=== PATIENT | female | born 1945 | race Caucasian/White ===

== ENCOUNTER 2021-09-15 11:17 | Emergency (ER) | payer BC, MEDICARE ==
[2021-09-15] MEDS ORDERED: Acetaminophen 500 MG Tab PO ONE (11:42)
== END 2021-09-15 12:27 | disposition home or self-care (01) ==
LOC: VM.ED 11:17
DX: S00.03XA Contusion of scalp, initial encounter (principal); Z88.0 Allergy status to penicillin; Z91.041 Radiographic dye allergy status; Z88.5 Allergy status to narcotic agent; Z88.1 Allergy status to other antibiotic agents; Z79.899 Other long term (current) drug therapy; Z79.01 Long term (current) use of anticoagulants; W18.30XA Fall on same level, unspecified, initial encounter
CPT/HCPCS: 70450; 99283; 99283-25

== ENCOUNTER 2022-03-14 14:54 | Emergency (ER) | payer MEDICARE ==
[2022-03-14 16:05] LABS: CHLORIDE,CL 97 mmol/L (98-107); SODIUM,NA 131 mmol/L (136-145)
[2022-03-14 16:06] LABS: ANION GAP 12.9 mmol/L (5-15); ESTIMATED GFR 92 mL/min (>=60)
[2022-03-14 16:27] LABS: CORONAVIRUS COVID-19 NAA NEGATIVE (NEGATIVE)
[2022-03-14] MEDS: Furosemide 40 MG/4 ML VIAL IV ONE (17:23)
== END 2022-03-14 18:00 | disposition home or self-care (01) ==
LOC: VM.ED 14:54
DX: I11.0 Hypertensive heart disease with heart failure (principal); I50.9 Heart failure, unspecified; E03.9 Hypothyroidism, unspecified; K21.9 Gastro-esophageal reflux disease without esophagitis; Z88.2 Allergy status to sulfonamides; Z88.0 Allergy status to penicillin; Z88.5 Allergy status to narcotic agent; Z20.822 Contact with and (suspected) exposure to COVID-19
CPT/HCPCS: 0240U; 36415; 80053; 82550; 83615; 83690; 83880; 84484; 85025; 86140; 93005; 93010; 96374; 99284; 99284-25; J1940

== ENCOUNTER 2022-05-23 16:55 | Emergency (ER) | payer MEDICARE ==
[2022-05-23] MEDS: traMADol 50 MG Tab PO ONE (17:23)
[2022-05-23] MEDS: Acetaminophen 325 MG Tab PO ONE (17:24)
== END 2022-05-23 19:20 | disposition home or self-care (01) ==
LOC: VM.ED 16:55
DX: S70.02XA Contusion of left hip, initial encounter (principal); I10 Essential (primary) hypertension; Z88.2 Allergy status to sulfonamides; Z88.0 Allergy status to penicillin; Z88.5 Allergy status to narcotic agent; Z91.041 Radiographic dye allergy status; Z79.899 Other long term (current) drug therapy; Z87.891 Personal history of nicotine dependence; W18.39XA Other fall on same level, initial encounter
CPT/HCPCS: 70450; 99284; A9270-GY

== ENCOUNTER 2022-09-24 09:23 | Emergency (ER) | payer MEDICARE ==
[2022-09-24 10:06] LABS: BASOPHILS PERCENT AUTO 0.7 % (0.2-1.2); EOSINOPHILS ABSOLUTE AUTO 0.1 x10^3/uL (0.0-0.5); EOSINOPHILS PERCENT AUTO 2.2 % (0.0-4.0); HEMATOCRIT 40.8 % (33.0-47.0); HEMOGLOBIN 13.7 g/dL (12.0-16.0); IMMATURE GRAN ABSOLUTE AUTO 0.01 x10^3/uL (0.00-0.07); LYMPHOCYTES ABSOLUTE AUTO 0.9 x10^3/uL (1.0-4.8); LYMPHOCYTES PERCENT AUTO 15.5 % (25.0-50.0); MEAN CORPUSCULAR HEMOGLOBIN 29.8 pg (26.0-32.0); MEAN CORPUSCULAR HGB CONC 33.6 g/dL (32.0-36.0); MEAN CORPUSCULAR VOLUME 88.7 fL (78.0-93.0); MONOCYTES ABSOLUTE AUTO 0.4 x10^3/uL (0.0-0.8); MONOCYTES PERCENT AUTO 7.3 % (2.0-11.0); NEUTROPHILS ABSOLUTE AUTO 4.5 x10^3/uL (1.8-7.7); NEUTROPHILS PERCENT AUTO 74.1 % (50.0-80.0); PLATELET COUNT,PLT 205 x10^3/uL (130-400)
[2022-09-24 10:26] LABS: ALANINE AMINOTRANSFERASE,ALT 19 U/L (14-59); ALBUMIN 3.1 g/dL (3.4-5.0); ALKALINE PHOSPHATASE 71 U/L (46-116); ASPARTATE AMNIOTRANSFERASE,AST 23 U/L (15-37); BILIRUBIN TOTAL 0.5 mg/dL (0.2-1.0); BLOOD UREA NITROGEN,BUN 15 mg/dL (7-18); C-REACTIVE PROTEIN 0.2 mg/dL (<=0.9); CALCIUM 8.6 mg/dL (8.5-10.1); CARBON DIOXIDE,CO2 26 mmol/L (21-32); CHLORIDE,CL 99 mmol/L (98-107); CREATININE 0.8 mg/dL (0.55-1.02); GLUCOSE RANDOM 114 mg/dL (70-99); POTASSIUM,K 3.7 mmol/L (3.5-5.1); PROTEIN TOTAL,TP 7.5 g/dL (6.4-8.2); SODIUM,NA 134 mmol/L (136-145); URIC ACID 2.6 mg/dL (2.6-6.0)
[2022-09-24 10:27] LABS: ANION GAP 12.7 mmol/L (5-15); ESTIMATED GFR 75 mL/min (>=60)
[2022-09-24 10:40] LABS: SEDIMENTATION RATE AUTO 18 mm/hr (0-20)
== END 2022-09-24 11:26 | disposition home or self-care (01) ==
LOC: VM.ED 09:23
DX: M25.571 Pain in right ankle and joints of right foot (principal); I48.91 Unspecified atrial fibrillation; I10 Essential (primary) hypertension; E03.9 Hypothyroidism, unspecified; Z88.2 Allergy status to sulfonamides; Z88.0 Allergy status to penicillin; Z88.5 Allergy status to narcotic agent; Z91.041 Radiographic dye allergy status; Z79.01 Long term (current) use of anticoagulants; Z79.899 Other long term (current) drug therapy
CPT/HCPCS: 36415; 73630-RT; 80053; 84550; 85025; 85652; 86140; 99283

== ENCOUNTER 2022-10-06 11:40 | Inpatient (IN) | payer MEDICARE ==
[2022-10-06] MEDS ORDERED: Sodium Chloride 0.9% 10 ML Syringe FLUSH PRN (12:29)
[2022-10-06] MEDS ORDERED: Ondansetron 4 MG Tab.DIS PO PRN (12:29)
[2022-10-06] MEDS ORDERED: Acetaminophen 325 MG Tab PO PRN (12:29)
[2022-10-06 13:01] LABS: BASOPHILS PERCENT AUTO 0.7 % (0.2-1.2); EOSINOPHILS ABSOLUTE AUTO 0.1 x10^3/uL (0.0-0.5); EOSINOPHILS PERCENT AUTO 2.4 % (0.0-4.0); HEMATOCRIT 41.1 % (33.0-47.0); HEMOGLOBIN 14.4 g/dL (12.0-16.0); IMMATURE GRAN ABSOLUTE AUTO 0.04 x10^3/uL (0.00-0.07); LYMPHOCYTES ABSOLUTE AUTO 0.9 x10^3/uL (1.0-4.8); LYMPHOCYTES PERCENT AUTO 14.9 % (25.0-50.0); MEAN CORPUSCULAR HEMOGLOBIN 30.2 pg (26.0-32.0); MEAN CORPUSCULAR VOLUME 86.2 fL (78.0-93.0); MONOCYTES ABSOLUTE AUTO 0.5 x10^3/uL (0.0-0.8); NEUTROPHILS ABSOLUTE AUTO 4.2 x10^3/uL (1.8-7.7); NEUTROPHILS PERCENT AUTO 72.3 % (50.0-80.0); PLATELET COUNT,PLT 318 x10^3/uL (130-400); RED BLOOD CELL COUNT 4.77 x10^6/uL (4.00-5.50); WHITE BLOOD CELL COUNT,WBC 5.8 x10^3/uL (4.0-10.0)
[2022-10-06 13:27] LABS: A/G RATIO 0.63; BILIRUBIN TOTAL 0.9 mg/dL (0.2-1.0); CALCIUM 8.2 mg/dL (8.5-10.1); CREATININE 0.7 mg/dL (0.55-1.02); EST CRCL DRUG DOSING (CG) 47.58 mL/min; MAGNESIUM 2.1 mg/dL (1.8-2.4); POTASSIUM,K 3.4 mmol/L (3.5-5.1); PROTEIN TOTAL,TP 7.8 g/dL (6.4-8.2); TSH ULTRASENSITIVE 12.248 uIU/mL (0.358-3.74)
[2022-10-06 13:28] LABS: ANION GAP 12.4 mmol/L (5-15)
[2022-10-06] MEDS ORDERED: Potassium Chloride 10 MEQ Tab.ER PO ONE (13:58)
[2022-10-06] MEDS ORDERED: predniSONE 5 MG Tab PO PRN (13:58)
[2022-10-06] MEDS ORDERED: predniSONE 1 MG Tab PO PRN (13:58)
[2022-10-06] MEDS ORDERED: Furosemide 20 MG Tab PO PRN (13:58)
[2022-10-06] MEDS ORDERED: Hyoscyamine 0.125 MG/ML Bottle PO PRN (14:44)
[2022-10-06] MEDS ORDERED: Levalbuterol HCl 1.25 MG/0.5 ML Neb INH PRN (14:45)
[2022-10-06] MEDS ORDERED: Ketotifen 0.025% Ophth Soln 5 ML Bottle EYEBOTH PRN (15:00)
[2022-10-06 16:10] LABS: BILIRUBIN,URINE SMALL (NEGATIVE); COLOR,URINE DARK YELLOW (YELLOW); GLUCOSE,URINE 500 mg/dL (NEGATIVE); KETONES,URINE NEGATIVE (NEGATIVE); LEUKOCYTE ESTERASE,URINE NEGATIVE (NEGATIVE); NITRITE,URINE NEGATIVE (NEGATIVE); OCCULT BLOOD,URINE TRACE-LYSED (NEGATIVE); PH,URINE 5.5 (5.0-8.0); PROTEIN,URINE 30 mg/dL (NEGATIVE); UROBILINOGEN,URINE 0.2 EU/dL (0.2)
[2022-10-06 16:12] LABS: APPEARANCE,URINE SLIGHTLY CLOUDY (CLEAR)
[2022-10-06 16:15] LABS: BACTERIA,URINE RARE /HPF (NOT SEEN); MUCUS,URINE NOT SEEN /LPF (NOT SEEN); SQUAMOUS EPITHELIAL CELLS,UR RARE /HPF (NOT SEEN); WBC,URINE 0-5 /HPF (NOT SEEN)
[2022-10-06] MEDS ORDERED: Sotalol 80 MG Tab PO ONE (19:47)
[2022-10-06] MEDS: Gabapentin 100 MG Cap PO SCH (20:54)
[2022-10-06] MEDS: Donepezil 10 MG Tab PO SCH (21:07)
[2022-10-06] MEDS: Formoterol/Mometasone 200-5 MCG 13 GM Inhaler INH SCH (21:08)
[2022-10-06] MEDS: ALPRAZolam 0.25 MG Tab PO PRN (23:05)
[2022-10-06] MEDS: Sotalol 80 MG Tab PO SCH (23:36)
[2022-10-07] MEDS: Levothyroxine 112 MCG Tab PO SCH (06:33)
[2022-10-07 07:29] LABS: CALCIUM 8.3 mg/dL (8.5-10.1); CREATININE 0.7 mg/dL (0.55-1.02); EST CRCL DRUG DOSING (CG) 47.58 mL/min; POTASSIUM,K 3.7 mmol/L (3.5-5.1)
[2022-10-07 07:31] LABS: ANION GAP 11.7 mmol/L (5-15)
[2022-10-07] MEDS: Rivaroxaban 10 MG Tab PO SCH (11:02)
[2022-10-07] MEDS: Pantoprazole 40 MG Tab.CR PO SCH (11:03)
[2022-10-07] MEDS: Magnesium Oxide 400 MG Tab PO SCH (11:04)
[2022-10-07] MEDS: Gabapentin 100 MG Cap PO SCH ×2 (11:04→21:15)
[2022-10-07] MEDS: Spironolactone 25 MG Tab PO SCH (11:04)
[2022-10-07] MEDS: Sotalol 80 MG Tab PO SCH ×2 (11:05→21:13)
[2022-10-07] MEDS: Empagliflozin 10 MG Tab PO SCH (11:05)
[2022-10-07] MEDS: Citalopram 20 MG Tab PO SCH (11:06)
[2022-10-07] MEDS: Formoterol/Mometasone 200-5 MCG 13 GM Inhaler INH SCH ×2 (11:07→21:16)
[2022-10-07] MEDS: Montelukast 10 MG Tab PO SCH (11:14)
[2022-10-07] MEDS: Donepezil 10 MG Tab PO SCH (21:15)
[2022-10-08] MEDS: Levothyroxine 112 MCG Tab PO SCH (06:14)
[2022-10-08] MEDS: Sotalol 80 MG Tab PO SCH ×2 (09:56→21:30)
[2022-10-08] MEDS: Magnesium Oxide 400 MG Tab PO SCH (09:57)
[2022-10-08] MEDS: Pantoprazole 40 MG Tab.CR PO SCH (09:57)
[2022-10-08] MEDS: Montelukast 10 MG Tab PO SCH (09:58)
[2022-10-08] MEDS: Rivaroxaban 10 MG Tab PO SCH (09:58)
[2022-10-08] MEDS: Gabapentin 100 MG Cap PO SCH ×2 (09:59→21:31)
[2022-10-08] MEDS: Citalopram 20 MG Tab PO SCH (09:59)
[2022-10-08] MEDS: Spironolactone 25 MG Tab PO SCH (09:59)
[2022-10-08] MEDS: Formoterol/Mometasone 200-5 MCG 13 GM Inhaler INH SCH ×2 (09:59→21:35)
[2022-10-08] MEDS: Empagliflozin 10 MG Tab PO SCH (10:00)
[2022-10-08] MEDS: Donepezil 10 MG Tab PO SCH (21:33)
[2022-10-09] MEDS: ALPRAZolam 0.25 MG Tab PO PRN (00:21)
[2022-10-09] MEDS: Levothyroxine 112 MCG Tab PO SCH (06:58)
[2022-10-09] MEDS: Empagliflozin 10 MG Tab PO SCH (10:06)
[2022-10-09] MEDS: Montelukast 10 MG Tab PO SCH (10:06)
[2022-10-09] MEDS: Citalopram 20 MG Tab PO SCH (10:06)
[2022-10-09] MEDS: Magnesium Oxide 400 MG Tab PO SCH (10:06)
[2022-10-09] MEDS: Gabapentin 100 MG Cap PO SCH (10:07)
[2022-10-09] MEDS: Sotalol 80 MG Tab PO SCH (10:08)
[2022-10-09] MEDS: Formoterol/Mometasone 200-5 MCG 13 GM Inhaler INH SCH (10:09)
[2022-10-09] MEDS: Pantoprazole 40 MG Tab.CR PO SCH (10:09)
[2022-10-09] MEDS: Rivaroxaban 10 MG Tab PO SCH (10:09)
[2022-10-09] MEDS: Spironolactone 25 MG Tab PO SCH (10:09)
[2022-10-14] MEDS ORDERED: Ketotifen 0.025% Ophth Soln 5 ML Bottle EYEBOTH PRN (16:33)
[2022-10-14] MEDS ORDERED: Acetaminophen 325 MG Tab PO PRN (16:33)
== END 2022-10-09 14:22 | disposition swing bed (61) | DRG 948 ==
LOC: VM.MS 11:47
PROVIDERS: ADMIT Family Medicine; ATTEND Family Medicine
DX: R41.0 Disorientation, unspecified (principal); I48.20 Chronic atrial fibrillation, unspecified; E87.1 Hypo-osmolality and hyponatremia; E03.9 Hypothyroidism, unspecified; I50.9 Heart failure, unspecified; K58.9 Irritable bowel syndrome, unspecified; M35.00 Sjogren syndrome, unspecified; K21.9 Gastro-esophageal reflux disease without esophagitis; J45.909 Unspecified asthma, uncomplicated; H91.90 Unspecified hearing loss, unspecified ear; I11.0 Hypertensive heart disease with heart failure; M19.90 Unspecified osteoarthritis, unspecified site; M06.9 Rheumatoid arthritis, unspecified; M81.0 Age-related osteoporosis without current pathological fracture; D64.9 Anemia, unspecified; Z96.649 Presence of unspecified artificial hip joint; Z96.659 Presence of unspecified artificial knee joint; R53.1 Weakness; R53.83 Other fatigue; I95.9 Hypotension, unspecified; W18.30XA Fall on same level, unspecified, initial encounter; S00.03XA Contusion of scalp, initial encounter; Y92.89 Other specified places as the place of occurrence of the external cause; Z98.890 Other specified postprocedural states; Z87.891 Personal history of nicotine dependence; Z79.890 Hormone replacement therapy
CPT/HCPCS: 36415; 70450; 80048; 80053; 81001; 83735; 84443; 85025; 87040; 87086; 95851-GO; 97110-GP; 97116-GP; 97161-GP; 97165-GO; 97535-GO; A9270-GY; J3490; U0002

== ENCOUNTER 2022-10-09 14:22 | Inpatient (IN) | payer MEDICARE ==
[~2022-10-09 14:22] MED LIST: ACETAMINOPHEN PO PRN; Furosemide 20 MG Tab PO PRN; GUAR GUM PO SCH; Hyoscyamine 0.125 MG/ML Bottle PO PRN; Loperamide 2 MG Cap PO PRN; Non-Formulary Medication 1 Each (Levalbuterol Tartrate [Xopenex Hfa] 15 GM Inhaler) INH PRN; Non-Formulary Medication 1 Each (Olopatadine [Patanol 0.1% Ophth Soln] 5 ML Bottle) OP SCH; Ondansetron 4 MG Tab.DIS PO PRN; TRAMADOL PO PRN; predniSONE 1 MG Tab PO PRN; predniSONE 5 MG Tab PO PRN
[2022-10-09] MEDS ORDERED: Acetaminophen 325 MG Tab PO PRN (15:29)
[2022-10-09] MEDS ORDERED: Ketotifen 0.025% Ophth Soln 5 ML Bottle EYEBOTH PRN (15:29)
[2022-10-09] MEDS: Sotalol 80 MG Tab PO SCH (21:26)
[2022-10-09] MEDS: Formoterol/Mometasone 200-5 MCG 13 GM Inhaler INH SCH (21:27)
[2022-10-09] MEDS: Gabapentin 100 MG Cap PO SCH (21:30)
[2022-10-09] MEDS: Donepezil 10 MG Tab PO SCH (21:32)
[2022-10-09] MEDS: ALPRAZolam 0.25 MG Tab PO PRN (21:33)
[2022-10-10] MEDS: Levothyroxine 112 MCG Tab PO SCH (06:42)
[2022-10-10] MEDS: Pantoprazole 40 MG Tab.CR PO SCH (06:42)
[2022-10-10] MEDS ORDERED: Levothyroxine 88 MCG Tab PO SCH (07:00)
[2022-10-10] MEDS ORDERED: Pantoprazole 40 MG Tab.CR PO SCH ×2 (09:00)
[2022-10-10] MEDS ORDERED: Citalopram 20 MG Tab PO SCH (09:00)
[2022-10-10] MEDS ORDERED: Non-Formulary Medication 1 Each (Fluticasone/Vilanterol 1 EACH Each) IH SCH (09:00)
[2022-10-10] MEDS: Magnesium Oxide 400 MG Tab PO SCH (10:03)
[2022-10-10] MEDS: Rivaroxaban 10 MG Tab PO SCH (10:03)
[2022-10-10] MEDS: Loratadine 10 MG Tab PO SCH (10:04)
[2022-10-10] MEDS: Empagliflozin 10 MG Tab PO SCH (10:04)
[2022-10-10] MEDS: Folic Acid 1 MG Tab PO SCH (10:04)
[2022-10-10] MEDS: Gabapentin 100 MG Cap PO SCH ×2 (10:04→20:54)
[2022-10-10] MEDS: Spironolactone 25 MG Tab PO SCH (10:05)
[2022-10-10] MEDS: Sotalol 80 MG Tab PO SCH ×2 (10:05→20:54)
[2022-10-10] MEDS: Citalopram 20 MG Tab PO SCH (10:05)
[2022-10-10] MEDS: Montelukast 10 MG Tab PO SCH (10:05)
[2022-10-10] MEDS: Formoterol/Mometasone 200-5 MCG 13 GM Inhaler INH SCH ×2 (10:06→20:56)
[2022-10-10] MEDS: Ascorbic Acid 500 MG Tab PO SCH (10:11)
[2022-10-10] MEDS: Donepezil 10 MG Tab PO SCH (20:55)
[2022-10-10] MEDS: ALPRAZolam 0.25 MG Tab PO PRN (23:17)
[2022-10-11] MEDS: Pantoprazole 40 MG Tab.CR PO SCH (06:16)
[2022-10-11] MEDS: Levothyroxine 112 MCG Tab PO SCH (06:16)
[2022-10-11] MEDS: Loratadine 10 MG Tab PO SCH (08:38)
[2022-10-11] MEDS: Rivaroxaban 10 MG Tab PO SCH (08:38)
[2022-10-11] MEDS: Ascorbic Acid 500 MG Tab PO SCH (08:38)
[2022-10-11] MEDS: Empagliflozin 10 MG Tab PO SCH (08:38)
[2022-10-11] MEDS: Spironolactone 25 MG Tab PO SCH (08:38)
[2022-10-11] MEDS: Gabapentin 100 MG Cap PO SCH ×2 (08:39→21:34)
[2022-10-11] MEDS: Magnesium Oxide 400 MG Tab PO SCH (08:39)
[2022-10-11] MEDS: Folic Acid 1 MG Tab PO SCH (08:39)
[2022-10-11] MEDS: Montelukast 10 MG Tab PO SCH (08:39)
[2022-10-11] MEDS: Sotalol 80 MG Tab PO SCH ×2 (08:39→21:36)
[2022-10-11] MEDS: Citalopram 20 MG Tab PO SCH (08:40)
[2022-10-11] MEDS: Formoterol/Mometasone 200-5 MCG 13 GM Inhaler INH SCH ×2 (08:45→21:35)
[2022-10-11] MEDS: Fish Oil/Omega-3 Fatty Acids 1 Gm Cap PO SCH (09:58)
[2022-10-11] MEDS ORDERED: [UNRECOGNIZED DRUG - OTHER] INH PRN (15:13)
[2022-10-11] MEDS ORDERED: LEVALBUTEROL INH PRN (15:13)
[2022-10-11 15:20] LABS: APPEARANCE,URINE CLEAR (CLEAR); BILIRUBIN,URINE NEGATIVE (NEGATIVE); COLOR,URINE YELLOW (YELLOW); GLUCOSE,URINE 500 mg/dL (NEGATIVE); KETONES,URINE NEGATIVE (NEGATIVE); LEUKOCYTE ESTERASE,URINE SMALL (NEGATIVE); NITRITE,URINE NEGATIVE (NEGATIVE); OCCULT BLOOD,URINE TRACE-LYSED (NEGATIVE); PH,URINE 6.5 (5.0-8.0); PROTEIN,URINE NEGATIVE (NEGATIVE); UROBILINOGEN,URINE 0.2 EU/dL (0.2)
[2022-10-11 15:21] LABS: BACTERIA,URINE RARE /HPF (NOT SEEN); RBC,URINE 0-5 /HPF (NOT SEEN); SQUAMOUS EPITHELIAL CELLS,UR RARE /HPF (NOT SEEN)
[2022-10-11] MEDS: Donepezil 10 MG Tab PO SCH (21:35)
[2022-10-11] MEDS: ALPRAZolam 0.25 MG Tab PO PRN (21:48)
[2022-10-12] MEDS: Levothyroxine 112 MCG Tab PO SCH (06:06)
[2022-10-12] MEDS: Pantoprazole 40 MG Tab.CR PO SCH (06:06)
[2022-10-12] MEDS: Rivaroxaban 10 MG Tab PO SCH (08:17)
[2022-10-12] MEDS: Folic Acid 1 MG Tab PO SCH (08:17)
[2022-10-12] MEDS: Empagliflozin 10 MG Tab PO SCH (08:17)
[2022-10-12] MEDS: Citalopram 20 MG Tab PO SCH (08:17)
[2022-10-12] MEDS: Magnesium Oxide 400 MG Tab PO SCH (08:17)
[2022-10-12] MEDS: Spironolactone 25 MG Tab PO SCH (08:18)
[2022-10-12] MEDS: Ascorbic Acid 500 MG Tab PO SCH (08:18)
[2022-10-12] MEDS: Sotalol 80 MG Tab PO SCH ×2 (08:18→22:03)
[2022-10-12] MEDS: Montelukast 10 MG Tab PO SCH (08:18)
[2022-10-12] MEDS: Loratadine 10 MG Tab PO SCH (08:18)
[2022-10-12] MEDS: Gabapentin 100 MG Cap PO SCH ×2 (08:19→22:02)
[2022-10-12] MEDS: Formoterol/Mometasone 200-5 MCG 13 GM Inhaler INH SCH ×2 (08:20→22:02)
[2022-10-12] MEDS ORDERED: Menthol Lozenge PO PRN (12:20)
[2022-10-12] MEDS: Donepezil 10 MG Tab PO SCH (22:01)
[2022-10-12] MEDS: ALPRAZolam 0.25 MG Tab PO PRN (23:23)
[2022-10-13] MEDS: Levothyroxine 112 MCG Tab PO SCH (06:55)
[2022-10-13] MEDS: Pantoprazole 40 MG Tab.CR PO SCH (06:55)
[2022-10-13] MEDS: Ascorbic Acid 500 MG Tab PO SCH (08:09)
[2022-10-13] MEDS: Magnesium Oxide 400 MG Tab PO SCH (08:09)
[2022-10-13] MEDS: Gabapentin 100 MG Cap PO SCH ×2 (08:09→21:29)
[2022-10-13] MEDS: Citalopram 20 MG Tab PO SCH (08:10)
[2022-10-13] MEDS: Montelukast 10 MG Tab PO SCH (08:10)
[2022-10-13] MEDS: Rivaroxaban 10 MG Tab PO SCH (08:10)
[2022-10-13] MEDS: Empagliflozin 10 MG Tab PO SCH (08:10)
[2022-10-13] MEDS: Folic Acid 1 MG Tab PO SCH (08:10)
[2022-10-13] MEDS: Loratadine 10 MG Tab PO SCH (08:10)
[2022-10-13] MEDS: Spironolactone 25 MG Tab PO SCH (08:10)
[2022-10-13] MEDS: Fish Oil/Omega-3 Fatty Acids 1 Gm Cap PO SCH (08:16)
[2022-10-13] MEDS: Sotalol 80 MG Tab PO SCH ×2 (08:17→21:31)
[2022-10-13] MEDS: Formoterol/Mometasone 200-5 MCG 13 GM Inhaler INH SCH ×2 (08:18→21:26)
[2022-10-13] MEDS: [UNRECOGNIZED DRUG - OTHER] PO PRN ×2 (10:33→21:25)
[2022-10-13] MEDS: Donepezil 10 MG Tab PO SCH (21:34)
[2022-10-13] MEDS: ALPRAZolam 0.25 MG Tab PO PRN (22:16)
[2022-10-14] MEDS: Levothyroxine 112 MCG Tab PO SCH (06:46)
[2022-10-14] MEDS: Pantoprazole 40 MG Tab.CR PO SCH (06:46)
[2022-10-14] MEDS: Spironolactone 25 MG Tab PO SCH (08:08)
[2022-10-14] MEDS: Loratadine 10 MG Tab PO SCH (08:08)
[2022-10-14] MEDS: Folic Acid 1 MG Tab PO SCH (08:08)
[2022-10-14] MEDS: Montelukast 10 MG Tab PO SCH (08:08)
[2022-10-14] MEDS: Rivaroxaban 10 MG Tab PO SCH (08:09)
[2022-10-14] MEDS: Magnesium Oxide 400 MG Tab PO SCH (08:09)
[2022-10-14] MEDS: Empagliflozin 10 MG Tab PO SCH (08:09)
[2022-10-14] MEDS: Gabapentin 100 MG Cap PO SCH ×2 (08:09→21:51)
[2022-10-14] MEDS: Sotalol 80 MG Tab PO SCH ×2 (08:09→21:48)
[2022-10-14] MEDS: Ascorbic Acid 500 MG Tab PO SCH (08:09)
[2022-10-14] MEDS: Citalopram 20 MG Tab PO SCH (08:10)
[2022-10-14] MEDS: Formoterol/Mometasone 200-5 MCG 13 GM Inhaler INH SCH ×2 (08:11→21:52)
[2022-10-14 12:04] LABS: CALCIUM 9.1 mg/dL (8.5-10.1); CREATININE 0.8 mg/dL (0.55-1.02); EST CRCL DRUG DOSING (CG) 41.63 mL/min; POTASSIUM,K 4.6 mmol/L (3.5-5.1)
[2022-10-14 12:11] LABS: ANION GAP 13.6 mmol/L (5-15)
[2022-10-14 15:26] LABS: APPEARANCE,URINE CLEAR (CLEAR); BILIRUBIN,URINE NEGATIVE (NEGATIVE); COLOR,URINE YELLOW (YELLOW); GLUCOSE,URINE 500 mg/dL (NEGATIVE); KETONES,URINE NEGATIVE (NEGATIVE); LEUKOCYTE ESTERASE,URINE NEGATIVE (NEGATIVE); NITRITE,URINE NEGATIVE (NEGATIVE); OCCULT BLOOD,URINE TRACE-INTACT (NEGATIVE); PH,URINE 6.5 (5.0-8.0); PROTEIN,URINE NEGATIVE (NEGATIVE); UROBILINOGEN,URINE 0.2 EU/dL (0.2)
[2022-10-14 15:27] LABS: BACTERIA,URINE RARE /HPF (NOT SEEN); MUCUS,URINE RARE /LPF (NOT SEEN); RBC,URINE 0-5 /HPF (NOT SEEN); SQUAMOUS EPITHELIAL CELLS,UR RARE /HPF (NOT SEEN); WBC,URINE 0-5 /HPF (NOT SEEN)
[2022-10-14] MEDS ORDERED: Ketotifen 0.025% Ophth Soln 5 ML Bottle EYEBOTH PRN (17:20)
[2022-10-14] MEDS ORDERED: Acetaminophen 325 MG Tab PO PRN (17:21)
[2022-10-14] MEDS ORDERED: Formoterol/Mometasone 200-5 MCG 13 GM Inhaler INH SCH (21:00)
[2022-10-14] MEDS: Donepezil 10 MG Tab PO SCH (21:51)
[2022-10-14] MEDS: [UNRECOGNIZED DRUG - OTHER] PO PRN (21:52)
[2022-10-14] MEDS: ALPRAZolam 0.25 MG Tab PO PRN (21:57)
[2022-10-15] MEDS: Levothyroxine 112 MCG Tab PO SCH (06:55)
[2022-10-15] MEDS: Pantoprazole 40 MG Tab.CR PO SCH (06:55)
[2022-10-15] MEDS ORDERED: Levothyroxine 112 MCG Tab PO SCH (07:00)
[2022-10-15] MEDS ORDERED: Ergocalciferol (Vitamin D2) 1.25 MG Cap PO SCH (08:00)
[2022-10-15] MEDS: Fish Oil/Omega-3 Fatty Acids 1 Gm Cap PO SCH (08:19)
[2022-10-15] MEDS ORDERED: Pantoprazole 40 MG Tab.CR PO SCH (09:00)
[2022-10-15] MEDS ORDERED: Citalopram 20 MG Tab PO SCH (09:00)
[2022-10-15] MEDS: Magnesium Oxide 400 MG Tab PO SCH (09:03)
[2022-10-15] MEDS: Gabapentin 100 MG Cap PO SCH (09:05)
[2022-10-15] MEDS: Folic Acid 1 MG Tab PO SCH (09:06)
[2022-10-15] MEDS: Spironolactone 25 MG Tab PO SCH (09:06)
[2022-10-15] MEDS: Loratadine 10 MG Tab PO SCH (09:06)
[2022-10-15] MEDS: Montelukast 10 MG Tab PO SCH (09:06)
[2022-10-15] MEDS: Citalopram 20 MG Tab PO SCH (09:07)
[2022-10-15] MEDS: Ascorbic Acid 500 MG Tab PO SCH (09:07)
[2022-10-15] MEDS: Rivaroxaban 10 MG Tab PO SCH (09:08)
[2022-10-15] MEDS: Sotalol 80 MG Tab PO SCH (09:09)
[2022-10-15] MEDS: Formoterol/Mometasone 200-5 MCG 13 GM Inhaler INH SCH (09:13)
== END 2022-10-15 13:25 | disposition home health service (06) | DRG 948 ==
LOC: VM.MS 14:22
PROVIDERS: ADMIT Nurse Practitioner Family; ATTEND Family Medicine
DX: R53.1 Weakness (principal); E03.9 Hypothyroidism, unspecified; R53.83 Other fatigue; S00.03XA Contusion of scalp, initial encounter; I48.91 Unspecified atrial fibrillation; I50.9 Heart failure, unspecified; Z96.659 Presence of unspecified artificial knee joint; Z96.649 Presence of unspecified artificial hip joint; J45.909 Unspecified asthma, uncomplicated; K21.9 Gastro-esophageal reflux disease without esophagitis; Z79.890 Hormone replacement therapy; Z79.899 Other long term (current) drug therapy; Z98.890 Other specified postprocedural states; Z87.891 Personal history of nicotine dependence
CPT/HCPCS: 36415; 80048; 81001; 82947; 87086; 97110-GP; 97116-GP; 97530-GO; 97530-GP; 97535-GO; A9270-GY

== ENCOUNTER 2022-10-15 20:56 | Inpatient (IN) | payer MEDICARE ==
[2022-10-15] MEDS ORDERED: Sodium Chloride 0.9% 10 ML Syringe FLUSH PRN (21:04)
[2022-10-15] MEDS: Sodium Chloride 0.9% 1,000 ML IV SCH (21:30)
[2022-10-15 21:37] LABS: BASOPHILS PERCENT AUTO 0.7 % (0.2-1.2); EOSINOPHILS ABSOLUTE AUTO 0.1 x10^3/uL (0.0-0.5); EOSINOPHILS PERCENT AUTO 2.5 % (0.0-4.0); HEMATOCRIT 38.3 % (33.0-47.0); HEMOGLOBIN 13.1 g/dL (12.0-16.0); IMMATURE GRAN ABSOLUTE AUTO 0.01 x10^3/uL (0.00-0.07); LYMPHOCYTES ABSOLUTE AUTO 1.1 x10^3/uL (1.0-4.8); LYMPHOCYTES PERCENT AUTO 24.5 % (25.0-50.0); MEAN CORPUSCULAR HEMOGLOBIN 29.7 pg (26.0-32.0); MEAN CORPUSCULAR HGB CONC 34.2 g/dL (32.0-36.0); MEAN CORPUSCULAR VOLUME 86.8 fL (78.0-93.0); MONOCYTES ABSOLUTE AUTO 0.4 x10^3/uL (0.0-0.8); MONOCYTES PERCENT AUTO 8.6 % (2.0-11.0); NEUTROPHILS ABSOLUTE AUTO 2.8 x10^3/uL (1.8-7.7); NEUTROPHILS PERCENT AUTO 63.5 % (50.0-80.0); PLATELET COUNT,PLT 312 x10^3/uL (130-400); RED BLOOD CELL COUNT 4.41 x10^6/uL (4.00-5.50); WHITE BLOOD CELL COUNT,WBC 4.4 x10^3/uL (4.0-10.0)
[2022-10-15 21:51] LABS: INR 1.9 (2.0-3.5); PROTHROMBIN TIME 19.5 SEC (9.5-12.2); PTT,PARTIAL THROMBOPLSTIN TIME 36.8 SEC (23.6-33.6)
[2022-10-15 21:58] LABS: LACTIC ACID 1.3 mmol/L (0.4-2.0)
[2022-10-15 22:07] LABS: A/G RATIO 0.57; ALANINE AMINOTRANSFERASE,ALT 25 U/L (14-59); ALBUMIN 2.8 g/dL (3.4-5.0); ALKALINE PHOSPHATASE 64 U/L (46-116); ASPARTATE AMNIOTRANSFERASE,AST 28 U/L (15-37); BILIRUBIN TOTAL 0.4 mg/dL (0.2-1.0); BLOOD UREA NITROGEN,BUN 15 mg/dL (7-18); C-REACTIVE PROTEIN 3.6 mg/dL (<=0.9); CALCIUM 8.9 mg/dL (8.5-10.1); CARBON DIOXIDE,CO2 25 mmol/L (21-32); CHLORIDE,CL 97 mmol/L (98-107); CREATININE 0.7 mg/dL (0.55-1.02); GLUCOSE RANDOM 114 mg/dL (70-99); MAGNESIUM 1.8 mg/dL (1.8-2.4); PHOSPHORUS 3.9 mg/dL (2.6-4.7); POTASSIUM,K 4.2 mmol/L (3.5-5.1); PRO B-TYPE NATRIUR PEPT,BNPPRO 3682 pg/mL (<=450); PROTEIN TOTAL,TP 7.7 g/dL (6.4-8.2); SODIUM,NA 131 mmol/L (136-145); TSH ULTRASENSITIVE 11.746 uIU/mL (0.358-3.74)
[2022-10-15 22:08] LABS: ANION GAP 13.2 mmol/L (5-15); ESTIMATED GFR 88 mL/min (>=60)
[2022-10-15 22:37] LABS: APPEARANCE,URINE CLEAR (CLEAR); BILIRUBIN,URINE NEGATIVE (NEGATIVE); COLOR,URINE YELLOW (YELLOW); GLUCOSE,URINE 500 mg/dL (NEGATIVE); KETONES,URINE NEGATIVE (NEGATIVE); LEUKOCYTE ESTERASE,URINE NEGATIVE (NEGATIVE); NITRITE,URINE NEGATIVE (NEGATIVE); OCCULT BLOOD,URINE TRACE-INTACT (NEGATIVE); PROTEIN,URINE NEGATIVE (NEGATIVE); UROBILINOGEN,URINE 0.2 EU/dL (0.2)
[2022-10-15 22:40] LABS: BACTERIA,URINE RARE /HPF (NOT SEEN); MUCUS,URINE NOT SEEN /LPF (NOT SEEN); RBC,URINE 0-5 /HPF (NOT SEEN); SQUAMOUS EPITHELIAL CELLS,UR OCCASIONAL /HPF (NOT SEEN); WBC,URINE NOT SEEN /HPF (NOT SEEN)
[2022-10-16] MEDS ORDERED: Ondansetron 4 MG Tab.DIS PO PRN (00:37)
[2022-10-16] MEDS ORDERED: Albuterol HFA 18 Gm Inhaler INH PRN (00:37)
[2022-10-16] MEDS ORDERED: Hyoscyamine 0.125 MG/ML Bottle PO PRN (00:37)
[2022-10-16] MEDS ORDERED: Acetaminophen 325 MG Tab PO PRN ×2 (00:37→01:15)
[2022-10-16] MEDS ORDERED: predniSONE 1 MG Tab PO PRN (00:37)
[2022-10-16] MEDS ORDERED: Non-Formulary Medication 1 Each INH PRN (00:37)
[2022-10-16] MEDS ORDERED: Ketotifen 0.025% Ophth Soln 5 ML Bottle EYEBOTH PRN (00:37)
[2022-10-16] MEDS ORDERED: ALPRAZolam 0.25 MG Tab PO PRN (00:37)
[2022-10-16] MEDS ORDERED: Furosemide 20 MG Tab PO PRN (00:37)
[2022-10-16] MEDS ORDERED: predniSONE 5 MG Tab PO PRN (00:37)
[2022-10-16] MEDS ORDERED: traMADol 50 MG Tab PO PRN (00:37)
[2022-10-16] MEDS ORDERED: Non-Formulary Medication 1 Each (Olopatadine [Patanol 0.1% Ophth Soln] 5 ML Bottle) OP SCH (00:45)
[2022-10-16] MEDS: Sodium Chloride 0.9% 1,000 ML IV SCH (03:53)
[2022-10-16] MEDS ORDERED: Levothyroxine 112 MCG Tab PO SCH (07:00)
[2022-10-16 08:02] LABS: HEMATOCRIT 36.9 % (33.0-47.0); HEMOGLOBIN 12.6 g/dL (12.0-16.0); MEAN CORPUSCULAR HEMOGLOBIN 29.6 pg (26.0-32.0); MEAN CORPUSCULAR HGB CONC 34.1 g/dL (32.0-36.0); MEAN CORPUSCULAR VOLUME 86.8 fL (78.0-93.0); RED BLOOD CELL COUNT 4.25 x10^6/uL (4.00-5.50); WHITE BLOOD CELL COUNT,WBC 5.2 x10^3/uL (4.0-10.0)
[2022-10-16 08:19] LABS: CALCIUM 8.3 mg/dL (8.5-10.1); CREATININE 0.6 mg/dL (0.55-1.02); EST CRCL DRUG DOSING (CG) 55.51 mL/min; POTASSIUM,K 3.9 mmol/L (3.5-5.1)
[2022-10-16 08:20] LABS: ANION GAP 12.9 mmol/L (5-15)
[2022-10-16] MEDS ORDERED: Non-Formulary Medication 1 Each (Fluticasone/Vilanterol 1 EACH Each) IH SCH (09:00)
[2022-10-16] MEDS ORDERED: Pantoprazole 40 MG Tab.CR PO SCH ×2 (09:00)
[2022-10-16] MEDS ORDERED: Montelukast 10 MG Tab PO SCH (09:00)
[2022-10-16] MEDS ORDERED: Gabapentin 100 MG Cap PO SCH (09:00)
[2022-10-16] MEDS ORDERED: Magnesium Oxide 400 MG Tab PO SCH (09:00)
[2022-10-16] MEDS ORDERED: Sotalol 80 MG Tab PO SCH (09:00)
[2022-10-16] MEDS ORDERED: Loratadine 10 MG Tab PO SCH (09:00)
[2022-10-16] MEDS ORDERED: Folic Acid 1 MG Tab PO SCH (09:00)
[2022-10-16] MEDS ORDERED: Spironolactone 25 MG Tab PO SCH (09:00)
[2022-10-16] MEDS ORDERED: Formoterol/Mometasone 200-5 MCG 13 GM Inhaler INH SCH (09:00)
[2022-10-16] MEDS ORDERED: Rivaroxaban 10 MG Tab PO SCH (09:00)
[2022-10-16] MEDS ORDERED: Ascorbic Acid 500 MG Tab PO SCH (09:00)
[2022-10-16] MEDS ORDERED: Citalopram 20 MG Tab PO SCH (09:00)
[2022-10-16] MEDS ORDERED: Donepezil 10 MG Tab PO SCH (21:00)
[2022-10-18] MEDS ORDERED: Fish Oil/Omega-3 Fatty Acids 1 Gm Cap PO SCH (08:00)
[2022-10-22] MEDS ORDERED: Ergocalciferol (Vitamin D2) 1.25 MG Cap PO SCH (08:00)
== END 2022-10-16 15:00 | disposition home health service (06) | DRG 187 ==
LOC: VM.ED 20:56 → VM.MS 22:50
PROVIDERS: ADMIT Nurse Practitioner Family; ATTEND Family Medicine
DX: R53.1 Weakness (principal); I48.91 Unspecified atrial fibrillation; J90 Pleural effusion, not elsewhere classified; E87.1 Hypo-osmolality and hyponatremia; I48.20 Chronic atrial fibrillation, unspecified; I50.32 Chronic diastolic (congestive) heart failure; R35.0 Frequency of micturition; I11.0 Hypertensive heart disease with heart failure; K58.9 Irritable bowel syndrome, unspecified; H91.90 Unspecified hearing loss, unspecified ear; E03.9 Hypothyroidism, unspecified; M06.9 Rheumatoid arthritis, unspecified; M19.90 Unspecified osteoarthritis, unspecified site; M81.0 Age-related osteoporosis without current pathological fracture; D64.9 Anemia, unspecified; Z96.649 Presence of unspecified artificial hip joint; Z96.659 Presence of unspecified artificial knee joint; M35.00 Sjogren syndrome, unspecified; Z88.2 Allergy status to sulfonamides; J45.20 Mild intermittent asthma, uncomplicated; Z88.0 Allergy status to penicillin; Z88.5 Allergy status to narcotic agent; Z91.041 Radiographic dye allergy status; K21.9 Gastro-esophageal reflux disease without esophagitis; Z79.899 Other long term (current) drug therapy
CPT/HCPCS: 36415; 70450; 71045; 80048; 80053; 81001; 82550; 82947; 83605; 83735; 83880; 84100; 84443; 85025; 85027; 85610; 85730; 86140; 99284; 99285; A9270-GY; J7030

== ENCOUNTER 2022-11-13 22:03 | Emergency (ER) | payer MEDICARE ==
[2022-11-13] MEDS: Ondansetron 4 MG Tab.DIS PO ONE (23:43)
[2022-11-14] MEDS: Take Home: Ondansetron 4 MG Tab.DIS, 5 Tab Pack PO ONE (00:08)
== END 2022-11-14 00:18 | disposition home or self-care (01) ==
LOC: VM.ED 22:03
DX: R51.9 Headache, unspecified (principal); R11.0 Nausea; K21.9 Gastro-esophageal reflux disease without esophagitis; E03.9 Hypothyroidism, unspecified; I48.91 Unspecified atrial fibrillation; J45.909 Unspecified asthma, uncomplicated; I10 Essential (primary) hypertension; Z87.891 Personal history of nicotine dependence; Z79.899 Other long term (current) drug therapy; Z88.2 Allergy status to sulfonamides; Z88.0 Allergy status to penicillin; Z88.5 Allergy status to narcotic agent; Z88.8 Allergy status to other drugs, medicaments and biological substances
CPT/HCPCS: 70450; 99284; A9270-GY; Q0162

== ENCOUNTER 2023-03-24 07:22 | Inpatient (IN) | payer BC, MEDICARE ==
[2023-03-24] MEDS ORDERED: Sodium Chloride 0.9% 1,000 ML IV ONE (07:38)
[2023-03-24 08:17] LABS: BASOPHILS PERCENT AUTO 0.7 % (0.2-1.2); EOSINOPHILS ABSOLUTE AUTO 0.3 x10^3/uL (0.0-0.5); EOSINOPHILS PERCENT AUTO 6.2 % (0.0-4.0); HEMATOCRIT 38.6 % (33.0-47.0); HEMOGLOBIN 13.4 g/dL (12.0-16.0); IMMATURE GRAN ABSOLUTE AUTO 0.02 x10^3/uL (0.00-0.07); LYMPHOCYTES ABSOLUTE AUTO 1.1 x10^3/uL (1.0-4.8); LYMPHOCYTES PERCENT AUTO 23.2 % (25.0-50.0); MEAN CORPUSCULAR HEMOGLOBIN 30.5 pg (26.0-32.0); MEAN CORPUSCULAR HGB CONC 34.7 g/dL (32.0-36.0); MEAN CORPUSCULAR VOLUME 87.9 fL (78.0-93.0); MONOCYTES ABSOLUTE AUTO 0.5 x10^3/uL (0.0-0.8); MONOCYTES PERCENT AUTO 10.6 % (2.0-11.0); NEUTROPHILS ABSOLUTE AUTO 2.7 x10^3/uL (1.8-7.7); NEUTROPHILS PERCENT AUTO 58.9 % (50.0-80.0); PLATELET COUNT,PLT 209 x10^3/uL (130-400); RED BLOOD CELL COUNT 4.39 x10^6/uL (4.00-5.50); WHITE BLOOD CELL COUNT,WBC 4.5 x10^3/uL (4.0-10.0)
[2023-03-24 08:44] LABS: A/G RATIO 0.51; ALANINE AMINOTRANSFERASE,ALT 12 U/L (14-59); ALBUMIN 2.5 g/dL (3.4-5.0); ALKALINE PHOSPHATASE 72 U/L (46-116); ASPARTATE AMNIOTRANSFERASE,AST 27 U/L (15-37); BILIRUBIN TOTAL 1.6 mg/dL (0.2-1.0); BLOOD UREA NITROGEN,BUN 23 mg/dL (7-18); C-REACTIVE PROTEIN 2.67 mg/dL (<=0.30); CALCIUM 8.1 mg/dL (8.5-10.1); CARBON DIOXIDE,CO2 26 mmol/L (21-32); CHLORIDE,CL 99 mmol/L (98-107); CREATININE 0.8 mg/dL (0.55-1.02); GLUCOSE RANDOM 79 mg/dL (70-99); MAGNESIUM 1.8 mg/dL (1.8-2.4); PRO B-TYPE NATRIUR PEPT,BNPPRO 13051 pg/mL (<=450); PROTEIN TOTAL,TP 7.4 g/dL (6.4-8.2); SODIUM,NA 133 mmol/L (136-145)
[2023-03-24 08:46] LABS: ESTIMATED GFR 75 mL/min (>=60)
[2023-03-24] MEDS ORDERED: Acetaminophen 325 MG Tab PO PRN (09:53)
[2023-03-24] MEDS ORDERED: Ondansetron 4 MG Tab.DIS PO PRN (09:53)
[2023-03-24] MEDS ORDERED: Sodium Chloride 0.9% 1,000 ML IV SCH (10:00)
[2023-03-24 11:31] LABS: LACTIC ACID 2.3 mmol/L (0.4-2.0)
[2023-03-24] MEDS ORDERED: LEVALBUTEROL INH PRN (12:22)
[2023-03-24] MEDS ORDERED: ALPRAZolam 0.25 MG Tab PO PRN (12:22)
[2023-03-24] MEDS ORDERED: Hyoscyamine 0.125 MG/ML Bottle PO PRN (12:59)
[2023-03-24] MEDS: Citalopram 20 MG Tab PO SCH (16:32)
[2023-03-24] MEDS: Rivaroxaban 10 MG Tab PO SCH (16:32)
[2023-03-24] MEDS: Donepezil 10 MG Tab PO SCH (20:12)
[2023-03-24] MEDS: Montelukast 10 MG Tab PO SCH (20:12)
[2023-03-24] MEDS: Magnesium Oxide 400 MG Tab PO SCH (20:12)
[2023-03-24] MEDS: Gabapentin 100 MG Cap PO SCH (20:12)
[2023-03-24] MEDS: Carvedilol 6.25 MG Tab PO SCH (20:27)
[2023-03-24] MEDS: Formoterol/Mometasone 200-5 MCG 13 GM Inhaler INH SCH (20:28)
[2023-03-25] MEDS: Pantoprazole 40 MG Tab.CR PO SCH (06:09)
[2023-03-25] MEDS: Levothyroxine 112 MCG Tab PO SCH (06:09)
[2023-03-25 06:45] LABS: EOSINOPHILS ABSOLUTE AUTO 0.3 x10^3/uL (0.0-0.5); EOSINOPHILS PERCENT AUTO 6.8 % (0.0-4.0); HEMATOCRIT 35.6 % (33.0-47.0); HEMOGLOBIN 12.2 g/dL (12.0-16.0); IMMATURE GRAN ABSOLUTE AUTO 0.04 x10^3/uL (0.00-0.07); LYMPHOCYTES ABSOLUTE AUTO 0.8 x10^3/uL (1.0-4.8); LYMPHOCYTES PERCENT AUTO 20.3 % (25.0-50.0); MEAN CORPUSCULAR HEMOGLOBIN 30.6 pg (26.0-32.0); MEAN CORPUSCULAR HGB CONC 34.3 g/dL (32.0-36.0); MEAN CORPUSCULAR VOLUME 89.2 fL (78.0-93.0); MONOCYTES ABSOLUTE AUTO 0.4 x10^3/uL (0.0-0.8); MONOCYTES PERCENT AUTO 9.8 % (2.0-11.0); NEUTROPHILS ABSOLUTE AUTO 2.4 x10^3/uL (1.8-7.7); NEUTROPHILS PERCENT AUTO 61.1 % (50.0-80.0); PLATELET COUNT,PLT 204 x10^3/uL (130-400); RED BLOOD CELL COUNT 3.99 x10^6/uL (4.00-5.50)
[2023-03-25 06:55] LABS: CALCIUM 7.7 mg/dL (8.5-10.1); CREATININE 0.7 mg/dL (0.55-1.02); EST CRCL DRUG DOSING (CG) 46.81 mL/min; POTASSIUM,K 4.1 mmol/L (3.5-5.1)
[2023-03-25 06:56] LABS: ANION GAP 11.1 mmol/L (5-15)
[2023-03-25 07:08] LABS: APPEARANCE,URINE TURBID (CLEAR); BILIRUBIN,URINE SMALL (NEGATIVE); COLOR,URINE DARK YELLOW (YELLOW); GLUCOSE,URINE NEGATIVE (NEGATIVE); KETONES,URINE NEGATIVE (NEGATIVE); LEUKOCYTE ESTERASE,URINE TRACE (NEGATIVE); NITRITE,URINE NEGATIVE (NEGATIVE); OCCULT BLOOD,URINE NEGATIVE (NEGATIVE); PH,URINE 5.5 (5.0-8.0); PROTEIN,URINE TRACE mg/dL (NEGATIVE)
[2023-03-25 07:13] LABS: BACTERIA,URINE FEW /HPF (NOT SEEN); MUCUS,URINE NOT SEEN /LPF (NOT SEEN); RBC,URINE 0-5 /HPF (NOT SEEN); SQUAMOUS EPITHELIAL CELLS,UR RARE /HPF (NOT SEEN); WBC,URINE 0-5 /HPF (NOT SEEN)
[2023-03-25 07:14] LABS: AMORPHOUS SEDIMENT,URINE MANY
[2023-03-25] MEDS: Furosemide 20 MG Tab PO SCH (08:53)
[2023-03-25] MEDS: Carvedilol 6.25 MG Tab PO SCH ×2 (08:53→21:16)
[2023-03-25] MEDS: Gabapentin 100 MG Cap PO SCH ×2 (08:54→21:17)
[2023-03-25] MEDS: Spironolactone 25 MG Tab PO SCH (08:54)
[2023-03-25] MEDS: Formoterol/Mometasone 200-5 MCG 13 GM Inhaler INH SCH ×2 (08:54→21:16)
[2023-03-25] MEDS: Ketotifen 0.025% Ophth Soln 5 ML Bottle EYEBOTH SCH (08:55)
[2023-03-25] MEDS: Citalopram 20 MG Tab PO SCH (16:23)
[2023-03-25] MEDS: Rivaroxaban 10 MG Tab PO SCH (16:23)
[2023-03-25] MEDS: LEVALBUTEROL INH PRN (16:47)
[2023-03-25] MEDS ORDERED: Albuterol/Ipratropium 3.0-0.5 MG/3 ML Neb Soln NEB PRN (16:53)
[2023-03-25] MEDS: Montelukast 10 MG Tab PO SCH (21:16)
[2023-03-25] MEDS: Magnesium Oxide 400 MG Tab PO SCH (21:16)
[2023-03-25] MEDS: Donepezil 10 MG Tab PO SCH (21:16)
[2023-03-26] MEDS: Levothyroxine 112 MCG Tab PO SCH (06:25)
[2023-03-26] MEDS: Pantoprazole 40 MG Tab.CR PO SCH (06:25)
[2023-03-26 08:15] LABS: BASOPHILS PERCENT AUTO 1.1 % (0.2-1.2); EOSINOPHILS ABSOLUTE AUTO 0.2 x10^3/uL (0.0-0.5); EOSINOPHILS PERCENT AUTO 6.4 % (0.0-4.0); HEMATOCRIT 36.3 % (33.0-47.0); HEMOGLOBIN 12.1 g/dL (12.0-16.0); IMMATURE GRAN ABSOLUTE AUTO 0.03 x10^3/uL (0.00-0.07); LYMPHOCYTES ABSOLUTE AUTO 0.8 x10^3/uL (1.0-4.8); LYMPHOCYTES PERCENT AUTO 21.5 % (25.0-50.0); MEAN CORPUSCULAR HGB CONC 33.3 g/dL (32.0-36.0); MEAN CORPUSCULAR VOLUME 90.1 fL (78.0-93.0); MONOCYTES ABSOLUTE AUTO 0.4 x10^3/uL (0.0-0.8); MONOCYTES PERCENT AUTO 11.7 % (2.0-11.0); NEUTROPHILS ABSOLUTE AUTO 2.2 x10^3/uL (1.8-7.7); NEUTROPHILS PERCENT AUTO 58.5 % (50.0-80.0); PLATELET COUNT,PLT 217 x10^3/uL (130-400); RED BLOOD CELL COUNT 4.03 x10^6/uL (4.00-5.50); WHITE BLOOD CELL COUNT,WBC 3.8 x10^3/uL (4.0-10.0)
[2023-03-26 08:22] LABS: CALCIUM 7.9 mg/dL (8.5-10.1); CREATININE 0.7 mg/dL (0.55-1.02); EST CRCL DRUG DOSING (CG) 46.81 mL/min; POTASSIUM,K 4.4 mmol/L (3.5-5.1)
[2023-03-26 08:28] LABS: ANION GAP 11.4 mmol/L (5-15)
[2023-03-26] MEDS: Spironolactone 25 MG Tab PO SCH (09:09)
[2023-03-26] MEDS: Carvedilol 6.25 MG Tab PO SCH ×2 (09:09→23:03)
[2023-03-26] MEDS: Gabapentin 100 MG Cap PO SCH ×2 (09:09→23:03)
[2023-03-26] MEDS: Formoterol/Mometasone 200-5 MCG 13 GM Inhaler INH SCH ×2 (09:10→23:05)
[2023-03-26] MEDS: Furosemide 20 MG Tab PO SCH (09:10)
[2023-03-26] MEDS: Ketotifen 0.025% Ophth Soln 5 ML Bottle EYEBOTH SCH (09:10)
[2023-03-26] MEDS: Albuterol/Ipratropium 3.0-0.5 MG/3 ML Neb Soln NEB SCH ×5 (10:14→23:44)
[2023-03-26] MEDS: LEVALBUTEROL INH PRN ×2 (12:47→17:34)
[2023-03-26] MEDS: Citalopram 20 MG Tab PO SCH (17:28)
[2023-03-26] MEDS: Rivaroxaban 10 MG Tab PO SCH (17:28)
[2023-03-26] MEDS: Donepezil 10 MG Tab PO SCH (23:03)
[2023-03-26] MEDS: Montelukast 10 MG Tab PO SCH (23:04)
[2023-03-26] MEDS: Magnesium Oxide 400 MG Tab PO SCH (23:06)
[2023-03-27] MEDS: LEVALBUTEROL INH PRN (00:04)
[2023-03-27] MEDS ORDERED: Furosemide 20 MG/2 ML VIAL IV ONE (01:10)
[2023-03-27] MEDS: Albuterol/Ipratropium 3.0-0.5 MG/3 ML Neb Soln NEB SCH ×6 (03:03→23:00)
[2023-03-27] MEDS: Levothyroxine 112 MCG Tab PO SCH (06:13)
[2023-03-27] MEDS: Pantoprazole 40 MG Tab.CR PO SCH (06:13)
[2023-03-27 07:57] LABS: BASOPHILS PERCENT AUTO 0.4 % (0.2-1.2); EOSINOPHILS ABSOLUTE AUTO 0.2 x10^3/uL (0.0-0.5); EOSINOPHILS PERCENT AUTO 3.7 % (0.0-4.0); HEMATOCRIT 37.3 % (33.0-47.0); HEMOGLOBIN 12.7 g/dL (12.0-16.0); IMMATURE GRAN ABSOLUTE AUTO 0.04 x10^3/uL (0.00-0.07); LYMPHOCYTES ABSOLUTE AUTO 1.1 x10^3/uL (1.0-4.8); LYMPHOCYTES PERCENT AUTO 20.9 % (25.0-50.0); MEAN CORPUSCULAR HEMOGLOBIN 30.2 pg (26.0-32.0); MEAN CORPUSCULAR VOLUME 88.6 fL (78.0-93.0); MONOCYTES ABSOLUTE AUTO 0.9 x10^3/uL (0.0-0.8); MONOCYTES PERCENT AUTO 17.2 % (2.0-11.0); NEUTROPHILS ABSOLUTE AUTO 3.1 x10^3/uL (1.8-7.7); NEUTROPHILS PERCENT AUTO 57.1 % (50.0-80.0); PLATELET COUNT,PLT 182 x10^3/uL (130-400); RED BLOOD CELL COUNT 4.21 x10^6/uL (4.00-5.50); WHITE BLOOD CELL COUNT,WBC 5.4 x10^3/uL (4.0-10.0)
[2023-03-27 08:07] LABS: CALCIUM 8.3 mg/dL (8.5-10.1); CREATININE 0.8 mg/dL (0.55-1.02); EST CRCL DRUG DOSING (CG) 40.96 mL/min; POTASSIUM,K 4.5 mmol/L (3.5-5.1)
[2023-03-27 08:10] LABS: ANION GAP 13.5 mmol/L (5-15)
[2023-03-27] MEDS: Formoterol/Mometasone 200-5 MCG 13 GM Inhaler INH SCH ×2 (09:03→20:35)
[2023-03-27] MEDS: Ketotifen 0.025% Ophth Soln 5 ML Bottle EYEBOTH SCH (09:04)
[2023-03-27] MEDS ORDERED: Furosemide 40 MG/4 ML VIAL IV ONE (09:44)
[2023-03-27] MEDS: Gabapentin 100 MG Cap PO SCH ×2 (10:14→20:32)
[2023-03-27] MEDS: Furosemide 20 MG Tab PO SCH (10:14)
[2023-03-27] MEDS: Spironolactone 25 MG Tab PO SCH (10:14)
[2023-03-27] MEDS: Carvedilol 6.25 MG Tab PO SCH ×3 (10:14→22:58)
[2023-03-27] MEDS: Citalopram 20 MG Tab PO SCH (17:31)
[2023-03-27] MEDS: Rivaroxaban 10 MG Tab PO SCH (17:32)
[2023-03-27] MEDS: Donepezil 10 MG Tab PO SCH (20:33)
[2023-03-27] MEDS: Magnesium Oxide 400 MG Tab PO SCH (20:33)
[2023-03-27] MEDS: Montelukast 10 MG Tab PO SCH (20:33)
[2023-03-28] MEDS: Albuterol/Ipratropium 3.0-0.5 MG/3 ML Neb Soln NEB SCH ×3 (02:02→10:45)
[2023-03-28] MEDS: Levothyroxine 112 MCG Tab PO SCH (06:03)
[2023-03-28] MEDS: Pantoprazole 40 MG Tab.CR PO SCH (06:03)
[2023-03-28 06:59] LABS: BASOPHILS PERCENT AUTO 0.6 % (0.2-1.2); EOSINOPHILS ABSOLUTE AUTO 0.3 x10^3/uL (0.0-0.5); EOSINOPHILS PERCENT AUTO 6.1 % (0.0-4.0); IMMATURE GRAN ABSOLUTE AUTO 0.01 x10^3/uL (0.00-0.07); LYMPHOCYTES ABSOLUTE AUTO 0.9 x10^3/uL (1.0-4.8); LYMPHOCYTES PERCENT AUTO 18.1 % (25.0-50.0); MEAN CORPUSCULAR HEMOGLOBIN 30.3 pg (26.0-32.0); MEAN CORPUSCULAR HGB CONC 34.3 g/dL (32.0-36.0); MEAN CORPUSCULAR VOLUME 88.4 fL (78.0-93.0); MONOCYTES ABSOLUTE AUTO 0.5 x10^3/uL (0.0-0.8); MONOCYTES PERCENT AUTO 10.5 % (2.0-11.0); NEUTROPHILS ABSOLUTE AUTO 3.1 x10^3/uL (1.8-7.7); NEUTROPHILS PERCENT AUTO 64.5 % (50.0-80.0); PLATELET COUNT,PLT 196 x10^3/uL (130-400); RED BLOOD CELL COUNT 3.96 x10^6/uL (4.00-5.50); WHITE BLOOD CELL COUNT,WBC 4.7 x10^3/uL (4.0-10.0)
[2023-03-28 07:25] LABS: A/G RATIO 0.49; ALBUMIN 2.1 g/dL (3.4-5.0); BILIRUBIN TOTAL 0.9 mg/dL (0.2-1.0); CREATININE 0.8 mg/dL (0.55-1.02); EST CRCL DRUG DOSING (CG) 40.96 mL/min; POTASSIUM,K 3.8 mmol/L (3.5-5.1); PROTEIN TOTAL,TP 6.4 g/dL (6.4-8.2)
[2023-03-28 07:29] LABS: ANION GAP 8.8 mmol/L (5-15); CALCIUM 7.9 mg/dL (8.5-10.1)
[2023-03-28] MEDS: Spironolactone 25 MG Tab PO SCH (08:38)
[2023-03-28] MEDS: Gabapentin 100 MG Cap PO SCH (08:38)
[2023-03-28] MEDS: Formoterol/Mometasone 200-5 MCG 13 GM Inhaler INH SCH (08:39)
[2023-03-28] MEDS: Furosemide 20 MG Tab PO SCH (08:39)
[2023-03-28] MEDS: Carvedilol 6.25 MG Tab PO SCH (08:39)
[2023-03-28] MEDS: Ketotifen 0.025% Ophth Soln 5 ML Bottle EYEBOTH SCH (08:39)
[2023-03-28] MEDS ORDERED: Furosemide 20 MG Tab PO ONE (08:48)
[2023-03-29] MEDS ORDERED: Furosemide 40 MG Tab PO SCH (09:00)
== END 2023-03-28 13:37 | disposition swing bed (61) | DRG 292 ==
LOC: VM.ED 07:22 → VM.MS 09:19
PROVIDERS: ADMIT Family Medicine; ATTEND Family Medicine
DX: I11.0 Hypertensive heart disease with heart failure (principal); E87.1 Hypo-osmolality and hyponatremia; F03.94 Unspecified dementia, unspecified severity, with anxiety; I50.42 Chronic combined systolic (congestive) and diastolic (congestive) heart failure; R29.6 Repeated falls; J45.909 Unspecified asthma, uncomplicated; K21.9 Gastro-esophageal reflux disease without esophagitis; H91.90 Unspecified hearing loss, unspecified ear; M19.90 Unspecified osteoarthritis, unspecified site; E03.9 Hypothyroidism, unspecified; M06.9 Rheumatoid arthritis, unspecified; Z96.659 Presence of unspecified artificial knee joint; F41.9 Anxiety disorder, unspecified; F43.20 Adjustment disorder, unspecified; M81.0 Age-related osteoporosis without current pathological fracture; Z96.649 Presence of unspecified artificial hip joint; I48.0 Paroxysmal atrial fibrillation; M35.00 Sjogren syndrome, unspecified; R62.7 Adult failure to thrive; E86.0 Dehydration; E86.1 Hypovolemia; Z68.24 Body mass index [BMI] 24.0-24.9, adult; Z88.2 Allergy status to sulfonamides; Z88.1 Allergy status to other antibiotic agents; Z88.5 Allergy status to narcotic agent; Z88.8 Allergy status to other drugs, medicaments and biological substances; Z79.01 Long term (current) use of anticoagulants; Z79.899 Other long term (current) drug therapy; Z87.891 Personal history of nicotine dependence
CPT/HCPCS: 36415; 71045; 80048; 80053; 81001; 81003; 83605; 83735; 83880; 84145; 85025; 86140; 87040; 87086; 94640; 94760; 96360; 97110-GP; 97116-GP; 97161-GP; 97165-GO; 99284; 99285-25; A9270-GY; J1940; J7030; J7620-GY

== ENCOUNTER 2023-03-28 12:38 | Inpatient (IN) | payer BC, MEDICARE ==
[2023-03-28] MEDS ORDERED: Acetaminophen 325 MG Tab PO PRN (12:51)
[2023-03-28] MEDS ORDERED: Ondansetron 4 MG Tab.DIS PO PRN (12:51)
[2023-03-28] MEDS ORDERED: Hyoscyamine 0.125 MG/ML Bottle PO PRN (12:51)
[2023-03-28] MEDS ORDERED: LEVALBUTEROL TARTRATE INH PRN (12:51)
[2023-03-28] MEDS: Albuterol/Ipratropium 3.0-0.5 MG/3 ML Neb Soln NEB SCH ×3 (14:42→22:45)
[2023-03-28] MEDS ORDERED: FLU (Fluad Quad) 2023-24(65UP)/MF59C/PF 60 MCG/0.5 ML Syringe IM ONE (15:00)
[2023-03-28] MEDS: ALPRAZolam 0.25 MG Tab PO PRN (16:09)
[2023-03-28] MEDS: Rivaroxaban 10 MG Tab PO SCH (18:00)
[2023-03-28] MEDS: Citalopram 20 MG Tab PO SCH (18:01)
[2023-03-28] MEDS: Montelukast 10 MG Tab PO SCH (20:55)
[2023-03-28] MEDS: Gabapentin 100 MG Cap PO SCH (20:55)
[2023-03-28] MEDS: Magnesium Oxide 400 MG Tab PO SCH (20:55)
[2023-03-28] MEDS: Carvedilol 6.25 MG Tab PO SCH (20:56)
[2023-03-28] MEDS: Donepezil 10 MG Tab PO SCH (20:56)
[2023-03-28] MEDS: Formoterol/Mometasone 200-5 MCG 13 GM Inhaler INH SCH (20:57)
[2023-03-29] MEDS: Albuterol/Ipratropium 3.0-0.5 MG/3 ML Neb Soln NEB SCH ×6 (02:31→23:06)
[2023-03-29] MEDS: Pantoprazole 40 MG Tab.CR PO SCH (06:07)
[2023-03-29] MEDS: Levothyroxine 112 MCG Tab PO SCH (06:08)
[2023-03-29] MEDS: Formoterol/Mometasone 200-5 MCG 13 GM Inhaler INH SCH ×2 (09:25→20:18)
[2023-03-29] MEDS: Ketotifen 0.025% Ophth Soln 5 ML Bottle EYEBOTH SCH (09:25)
[2023-03-29] MEDS: Gabapentin 100 MG Cap PO SCH ×2 (09:25→20:17)
[2023-03-29] MEDS: Furosemide 40 MG Tab PO SCH (09:25)
[2023-03-29] MEDS: Spironolactone 25 MG Tab PO SCH (09:25)
[2023-03-29] MEDS: Carvedilol 6.25 MG Tab PO SCH ×2 (09:25→20:16)
[2023-03-29] MEDS: Rivaroxaban 10 MG Tab PO SCH (18:07)
[2023-03-29] MEDS: Citalopram 20 MG Tab PO SCH (18:07)
[2023-03-29] MEDS: Montelukast 10 MG Tab PO SCH (20:16)
[2023-03-29] MEDS: Magnesium Oxide 400 MG Tab PO SCH (20:16)
[2023-03-29] MEDS: Donepezil 10 MG Tab PO SCH (20:17)
[2023-03-30] MEDS: Pantoprazole 40 MG Tab.CR PO SCH (07:13)
[2023-03-30] MEDS: Albuterol/Ipratropium 3.0-0.5 MG/3 ML Neb Soln NEB SCH ×5 (07:13→18:46)
[2023-03-30] MEDS: Levothyroxine 112 MCG Tab PO SCH (07:14)
[2023-03-30] MEDS: Spironolactone 25 MG Tab PO SCH (09:13)
[2023-03-30] MEDS: Carvedilol 6.25 MG Tab PO SCH ×2 (09:14→20:41)
[2023-03-30] MEDS: Gabapentin 100 MG Cap PO SCH ×2 (09:16→20:26)
[2023-03-30] MEDS: Furosemide 40 MG Tab PO SCH (09:17)
[2023-03-30] MEDS: Formoterol/Mometasone 200-5 MCG 13 GM Inhaler INH SCH ×2 (09:19→20:42)
[2023-03-30] MEDS: Ketotifen 0.025% Ophth Soln 5 ML Bottle EYEBOTH SCH (09:21)
[2023-03-30] MEDS: ALPRAZolam 0.25 MG Tab PO PRN (14:35)
[2023-03-30 15:34] LABS: BASOPHILS PERCENT AUTO 0.4 % (0.2-1.2); EOSINOPHILS ABSOLUTE AUTO 0.2 x10^3/uL (0.0-0.5); EOSINOPHILS PERCENT AUTO 3.9 % (0.0-4.0); HEMATOCRIT 37.5 % (33.0-47.0); HEMOGLOBIN 12.7 g/dL (12.0-16.0); IMMATURE GRAN ABSOLUTE AUTO 0.02 x10^3/uL (0.00-0.07); LYMPHOCYTES ABSOLUTE AUTO 0.7 x10^3/uL (1.0-4.8); MEAN CORPUSCULAR HEMOGLOBIN 30.2 pg (26.0-32.0); MEAN CORPUSCULAR HGB CONC 33.9 g/dL (32.0-36.0); MEAN CORPUSCULAR VOLUME 89.1 fL (78.0-93.0); MONOCYTES ABSOLUTE AUTO 0.4 x10^3/uL (0.0-0.8); MONOCYTES PERCENT AUTO 7.2 % (2.0-11.0); NEUTROPHILS ABSOLUTE AUTO 3.8 x10^3/uL (1.8-7.7); NEUTROPHILS PERCENT AUTO 74.1 % (50.0-80.0); PLATELET COUNT,PLT 234 x10^3/uL (130-400); RED BLOOD CELL COUNT 4.21 x10^6/uL (4.00-5.50); WHITE BLOOD CELL COUNT,WBC 5.1 x10^3/uL (4.0-10.0)
[2023-03-30 15:44] LABS: APPEARANCE,URINE CLEAR (CLEAR); BILIRUBIN,URINE NEGATIVE (NEGATIVE); COLOR,URINE LIGHT YELLOW (YELLOW); GLUCOSE,URINE NEGATIVE (NEGATIVE); KETONES,URINE NEGATIVE (NEGATIVE); LEUKOCYTE ESTERASE,URINE NEGATIVE (NEGATIVE); NITRITE,URINE NEGATIVE (NEGATIVE); OCCULT BLOOD,URINE NEGATIVE (NEGATIVE); PH,URINE 6.5 (5.0-8.0); PROTEIN,URINE NEGATIVE (NEGATIVE); UROBILINOGEN,URINE 0.2 EU/dL (0.2)
[2023-03-30 15:55] LABS: A/G RATIO 0.46; ALBUMIN 2.3 g/dL (3.4-5.0); CALCIUM 8.8 mg/dL (8.5-10.1); CREATININE 0.8 mg/dL (0.55-1.02); EST CRCL DRUG DOSING (CG) 23.56 mL/min; POTASSIUM,K 3.8 mmol/L (3.5-5.1); PROTEIN TOTAL,TP 7.3 g/dL (6.4-8.2)
[2023-03-30 16:01] LABS: ANION GAP 9.8 mmol/L (5-15)
[2023-03-30] MEDS: Citalopram 20 MG Tab PO SCH (17:07)
[2023-03-30] MEDS: Rivaroxaban 10 MG Tab PO SCH (17:09)
[2023-03-30] MEDS: Donepezil 10 MG Tab PO SCH (20:25)
[2023-03-30] MEDS: Magnesium Oxide 400 MG Tab PO SCH (20:25)
[2023-03-30] MEDS: Montelukast 10 MG Tab PO SCH (20:25)
[2023-03-31] MEDS: Albuterol/Ipratropium 3.0-0.5 MG/3 ML Neb Soln NEB SCH ×8 (00:37→23:25)
[2023-03-31] MEDS: Levothyroxine 112 MCG Tab PO SCH ×2 (05:13→06:46)
[2023-03-31] MEDS: Pantoprazole 40 MG Tab.CR PO SCH ×2 (05:13→06:47)
[2023-03-31] MEDS: Spironolactone 25 MG Tab PO SCH (08:59)
[2023-03-31] MEDS: Furosemide 40 MG Tab PO SCH (08:59)
[2023-03-31] MEDS: Gabapentin 100 MG Cap PO SCH ×2 (08:59→21:35)
[2023-03-31] MEDS: Carvedilol 6.25 MG Tab PO SCH ×2 (09:00→21:56)
[2023-03-31] MEDS: Ketotifen 0.025% Ophth Soln 5 ML Bottle EYEBOTH SCH (09:01)
[2023-03-31] MEDS: Formoterol/Mometasone 200-5 MCG 13 GM Inhaler INH SCH ×2 (09:01→21:56)
[2023-03-31] MEDS: Citalopram 20 MG Tab PO SCH (17:21)
[2023-03-31] MEDS: Rivaroxaban 10 MG Tab PO SCH (17:21)
[2023-03-31] MEDS: ALPRAZolam 0.25 MG Tab PO PRN (21:35)
[2023-03-31] MEDS: Donepezil 10 MG Tab PO SCH (21:35)
[2023-03-31] MEDS: Magnesium Oxide 400 MG Tab PO SCH (21:56)
[2023-03-31] MEDS: Montelukast 10 MG Tab PO SCH (21:57)
[2023-04-01] MEDS: Albuterol/Ipratropium 3.0-0.5 MG/3 ML Neb Soln NEB SCH ×6 (04:10→22:40)
[2023-04-01] MEDS: Pantoprazole 40 MG Tab.CR PO SCH (06:41)
[2023-04-01] MEDS: Levothyroxine 112 MCG Tab PO SCH (06:41)
[2023-04-01] MEDS: Spironolactone 25 MG Tab PO SCH (09:40)
[2023-04-01] MEDS: Gabapentin 100 MG Cap PO SCH ×2 (09:40→20:57)
[2023-04-01] MEDS: Furosemide 40 MG Tab PO SCH (09:40)
[2023-04-01] MEDS: Carvedilol 6.25 MG Tab PO SCH ×2 (09:40→20:52)
[2023-04-01] MEDS: Formoterol/Mometasone 200-5 MCG 13 GM Inhaler INH SCH ×2 (09:41→20:58)
[2023-04-01] MEDS: Ketotifen 0.025% Ophth Soln 5 ML Bottle EYEBOTH SCH (09:41)
[2023-04-01] MEDS: Citalopram 20 MG Tab PO SCH (16:46)
[2023-04-01] MEDS: Rivaroxaban 10 MG Tab PO SCH (16:46)
[2023-04-01] MEDS: Montelukast 10 MG Tab PO SCH (20:56)
[2023-04-01] MEDS: Donepezil 10 MG Tab PO SCH (20:56)
[2023-04-01] MEDS: Magnesium Oxide 400 MG Tab PO SCH (20:58)
[2023-04-01] MEDS: ALPRAZolam 0.25 MG Tab PO PRN (22:40)
[2023-04-02] MEDS: Albuterol/Ipratropium 3.0-0.5 MG/3 ML Neb Soln NEB SCH ×6 (04:05→22:16)
[2023-04-02] MEDS: Pantoprazole 40 MG Tab.CR PO SCH (06:33)
[2023-04-02] MEDS: Levothyroxine 112 MCG Tab PO SCH (06:33)
[2023-04-02] MEDS: Spironolactone 25 MG Tab PO SCH (08:50)
[2023-04-02] MEDS: Carvedilol 6.25 MG Tab PO SCH ×2 (08:50→21:07)
[2023-04-02] MEDS: Furosemide 40 MG Tab PO SCH (08:50)
[2023-04-02] MEDS: Gabapentin 100 MG Cap PO SCH ×2 (08:50→21:01)
[2023-04-02] MEDS: Formoterol/Mometasone 200-5 MCG 13 GM Inhaler INH SCH ×2 (08:51→21:04)
[2023-04-02] MEDS: Ketotifen 0.025% Ophth Soln 5 ML Bottle EYEBOTH SCH (08:51)
[2023-04-02] MEDS: Rivaroxaban 10 MG Tab PO SCH (17:27)
[2023-04-02] MEDS: Citalopram 20 MG Tab PO SCH (17:27)
[2023-04-02] MEDS: Montelukast 10 MG Tab PO SCH (21:03)
[2023-04-02] MEDS: Magnesium Oxide 400 MG Tab PO SCH (21:03)
[2023-04-02] MEDS: Donepezil 10 MG Tab PO SCH (21:03)
[2023-04-02] MEDS: ALPRAZolam 0.25 MG Tab PO PRN (22:25)
[2023-04-03] MEDS: Albuterol/Ipratropium 3.0-0.5 MG/3 ML Neb Soln NEB SCH ×6 (02:19→22:00)
[2023-04-03] MEDS: Pantoprazole 40 MG Tab.CR PO SCH (06:40)
[2023-04-03] MEDS: Levothyroxine 112 MCG Tab PO SCH (06:41)
[2023-04-03] MEDS: Furosemide 40 MG Tab PO SCH (09:26)
[2023-04-03] MEDS: Carvedilol 6.25 MG Tab PO SCH ×2 (09:26→21:33)
[2023-04-03] MEDS: Gabapentin 100 MG Cap PO SCH ×2 (09:26→21:32)
[2023-04-03] MEDS: Spironolactone 25 MG Tab PO SCH (09:26)
[2023-04-03] MEDS: Formoterol/Mometasone 200-5 MCG 13 GM Inhaler INH SCH ×2 (09:27→21:34)
[2023-04-03] MEDS: Ketotifen 0.025% Ophth Soln 5 ML Bottle EYEBOTH SCH (09:27)
[2023-04-03] MEDS: Rivaroxaban 10 MG Tab PO SCH ×4 (16:59→21:43)
[2023-04-03] MEDS: Citalopram 20 MG Tab PO SCH ×2 (16:59→17:04)
[2023-04-03] MEDS: ALPRAZolam 0.25 MG Tab PO PRN (21:26)
[2023-04-03] MEDS: Montelukast 10 MG Tab PO SCH (21:33)
[2023-04-03] MEDS: Magnesium Oxide 400 MG Tab PO SCH (21:33)
[2023-04-03] MEDS: Donepezil 10 MG Tab PO SCH (21:35)
[2023-04-04] MEDS: Albuterol/Ipratropium 3.0-0.5 MG/3 ML Neb Soln NEB SCH ×5 (03:00→21:20)
[2023-04-04] MEDS: Levothyroxine 112 MCG Tab PO SCH (06:33)
[2023-04-04] MEDS: Pantoprazole 40 MG Tab.CR PO SCH (06:33)
[2023-04-04] MEDS: Spironolactone 25 MG Tab PO SCH (10:12)
[2023-04-04] MEDS: Furosemide 40 MG Tab PO SCH (10:12)
[2023-04-04] MEDS: Carvedilol 6.25 MG Tab PO SCH ×2 (10:12→21:25)
[2023-04-04] MEDS: Gabapentin 100 MG Cap PO SCH ×2 (10:12→21:19)
[2023-04-04] MEDS: Ketotifen 0.025% Ophth Soln 5 ML Bottle EYEBOTH SCH (10:13)
[2023-04-04] MEDS: Formoterol/Mometasone 200-5 MCG 13 GM Inhaler INH SCH ×2 (10:13→21:20)
[2023-04-04] MEDS: Citalopram 20 MG Tab PO SCH (16:44)
[2023-04-04] MEDS: Rivaroxaban 10 MG Tab PO SCH (16:44)
[2023-04-04] MEDS: Magnesium Oxide 400 MG Tab PO SCH (21:20)
[2023-04-04] MEDS: Donepezil 10 MG Tab PO SCH (21:20)
[2023-04-04] MEDS: Montelukast 10 MG Tab PO SCH (21:20)
[2023-04-05] MEDS: Albuterol/Ipratropium 3.0-0.5 MG/3 ML Neb Soln NEB SCH ×7 (01:42→23:07)
[2023-04-05] MEDS: Pantoprazole 40 MG Tab.CR PO SCH (06:21)
[2023-04-05] MEDS: Levothyroxine 112 MCG Tab PO SCH (06:21)
[2023-04-05] MEDS: Gabapentin 100 MG Cap PO SCH ×2 (08:46→21:20)
[2023-04-05] MEDS: Furosemide 40 MG Tab PO SCH (08:47)
[2023-04-05] MEDS: Carvedilol 6.25 MG Tab PO SCH ×2 (08:47→21:22)
[2023-04-05] MEDS: Spironolactone 25 MG Tab PO SCH (08:47)
[2023-04-05] MEDS: Formoterol/Mometasone 200-5 MCG 13 GM Inhaler INH SCH ×2 (09:00→21:22)
[2023-04-05] MEDS: Ketotifen 0.025% Ophth Soln 5 ML Bottle EYEBOTH SCH (09:02)
[2023-04-05] MEDS: ALPRAZolam 0.25 MG Tab PO PRN ×2 (11:53→21:20)
[2023-04-05] MEDS: Citalopram 20 MG Tab PO SCH (16:23)
[2023-04-05] MEDS: Rivaroxaban 10 MG Tab PO SCH (16:24)
[2023-04-05] MEDS: Donepezil 10 MG Tab PO SCH (21:20)
[2023-04-05] MEDS: Montelukast 10 MG Tab PO SCH (21:21)
[2023-04-05] MEDS: Magnesium Oxide 400 MG Tab PO SCH (21:21)
[2023-04-06] MEDS: Albuterol/Ipratropium 3.0-0.5 MG/3 ML Neb Soln NEB SCH ×3 (06:06→12:42)
[2023-04-06] MEDS: Levothyroxine 112 MCG Tab PO SCH (08:20)
[2023-04-06] MEDS: Pantoprazole 40 MG Tab.CR PO SCH (08:20)
[2023-04-06] MEDS: Gabapentin 100 MG Cap PO SCH ×2 (08:20→21:00)
[2023-04-06] MEDS: Spironolactone 25 MG Tab PO SCH (08:23)
[2023-04-06] MEDS: Furosemide 40 MG Tab PO SCH (08:24)
[2023-04-06] MEDS: Ketotifen 0.025% Ophth Soln 5 ML Bottle EYEBOTH SCH (08:34)
[2023-04-06] MEDS: Formoterol/Mometasone 200-5 MCG 13 GM Inhaler INH SCH ×2 (08:34→21:01)
[2023-04-06] MEDS: Carvedilol 6.25 MG Tab PO SCH ×2 (08:35→21:00)
[2023-04-06] MEDS: Nystatin Susp 100,000 Unit/ML 5 ML UD Cup PO SCH ×2 (13:26→21:00)
[2023-04-06] MEDS: Rivaroxaban 10 MG Tab PO SCH (16:48)
[2023-04-06] MEDS: Citalopram 20 MG Tab PO SCH (16:48)
[2023-04-06] MEDS: Montelukast 10 MG Tab PO SCH (21:00)
[2023-04-06] MEDS: Magnesium Oxide 400 MG Tab PO SCH (21:00)
[2023-04-06] MEDS: Donepezil 10 MG Tab PO SCH (21:00)
[2023-04-07] MEDS: Levothyroxine 112 MCG Tab PO SCH ×3 (06:18→12:41)
[2023-04-07] MEDS: Pantoprazole 40 MG Tab.CR PO SCH ×3 (06:18→12:41)
[2023-04-07 06:46] LABS: APPEARANCE,URINE CLEAR (CLEAR); BILIRUBIN,URINE NEGATIVE (NEGATIVE); COLOR,URINE YELLOW (YELLOW); GLUCOSE,URINE NEGATIVE (NEGATIVE); KETONES,URINE NEGATIVE (NEGATIVE); LEUKOCYTE ESTERASE,URINE NEGATIVE (NEGATIVE); NITRITE,URINE NEGATIVE (NEGATIVE); OCCULT BLOOD,URINE SMALL (NEGATIVE); PROTEIN,URINE NEGATIVE (NEGATIVE); UROBILINOGEN,URINE 0.2 EU/dL (0.2)
[2023-04-07 07:02] LABS: BACTERIA,URINE NOT SEEN /HPF (NOT SEEN); MUCUS,URINE NOT SEEN /LPF (NOT SEEN); SQUAMOUS EPITHELIAL CELLS,UR NOT SEEN /HPF (NOT SEEN); WBC,URINE 0-5 /HPF (NOT SEEN)
[2023-04-07] MEDS: Nystatin Susp 100,000 Unit/ML 5 ML UD Cup PO SCH ×4 (08:18→20:13)
[2023-04-07] MEDS: Spironolactone 25 MG Tab PO SCH ×2 (08:19→12:41)
[2023-04-07] MEDS: Gabapentin 100 MG Cap PO SCH ×2 (08:19→12:40)
[2023-04-07] MEDS: Carvedilol 6.25 MG Tab PO SCH ×2 (08:20→12:40)
[2023-04-07] MEDS: Furosemide 40 MG Tab PO SCH ×2 (08:20→12:40)
[2023-04-07] MEDS: Formoterol/Mometasone 200-5 MCG 13 GM Inhaler INH SCH ×3 (08:23→20:20)
[2023-04-07] MEDS: Ketotifen 0.025% Ophth Soln 5 ML Bottle EYEBOTH SCH ×2 (08:23→12:40)
[2023-04-07] MEDS ORDERED: HYOSCYAMINE 0.125 MG PO PRN (16:07)
[2023-04-07] MEDS: RIVAROXABAN 20 MG PO SCH ×2 (17:19→18:59)
[2023-04-07] MEDS: PILOCARPINE 5 MG PO SCH ×3 (17:20→20:12)
[2023-04-07] MEDS: Donepezil 10 MG Tab (OWN SUPPLY) PO SCH (20:10)
[2023-04-07] MEDS: Magnesium Oxide 400 MG Tab PO SCH (20:13)
[2023-04-07] MEDS: Gabapentin 100 MG Cap (OWN SUPPLY) PO SCH (20:19)
[2023-04-07] MEDS: MONTELUKAST 10 MG PO SCH (20:34)
[2023-04-08] MEDS: LEVOTHYROXINE 112 MCG PO SCH (06:05)
[2023-04-08] MEDS: LANSOPRAZOLE 30 MG PO SCH (06:05)
[2023-04-08] MEDS ORDERED: CARVEDILOL 6.25 MG PO SCH (09:00)
[2023-04-08] MEDS: Spironolactone 25 MG Tab (OWN SUPPLY) PO SCH (09:14)
[2023-04-08] MEDS: Nystatin Susp 100,000 Unit/ML 5 ML UD Cup PO SCH ×2 (09:14→14:07)
[2023-04-08] MEDS: Furosemide 20 MG Tab (OWN SUPPLY) PO SCH (09:16)
[2023-04-08] MEDS: Ketotifen 0.025% Ophth Soln 5 ML Bottle EYEBOTH SCH (09:16)
[2023-04-08] MEDS: PILOCARPINE 5 MG PO SCH ×3 (09:16→20:47)
[2023-04-08] MEDS: Gabapentin 100 MG Cap (OWN SUPPLY) PO SCH ×2 (09:17→20:51)
[2023-04-08] MEDS: Formoterol/Mometasone 200-5 MCG 13 GM Inhaler INH SCH ×2 (09:17→20:50)
[2023-04-08] MEDS: RIVAROXABAN 20 MG PO SCH (16:47)
[2023-04-08] MEDS: MONTELUKAST 10 MG PO SCH (20:47)
[2023-04-08] MEDS: Donepezil 10 MG Tab (OWN SUPPLY) PO SCH (20:49)
[2023-04-08] MEDS: Magnesium Oxide 400 MG Tab PO SCH (20:50)
[2023-04-08] MEDS: NYSTATIN 100000 UNIT/ML PO SCH (21:00)
[2023-04-09] MEDS: LEVOTHYROXINE 112 MCG PO SCH (06:18)
[2023-04-09] MEDS: LANSOPRAZOLE 30 MG PO SCH (06:18)
[2023-04-09] MEDS: Spironolactone 25 MG Tab (OWN SUPPLY) PO SCH (10:14)
[2023-04-09] MEDS: Gabapentin 100 MG Cap (OWN SUPPLY) PO SCH ×2 (10:14→20:16)
[2023-04-09] MEDS: PILOCARPINE 5 MG PO SCH ×3 (10:14→20:14)
[2023-04-09] MEDS: Furosemide 20 MG Tab (OWN SUPPLY) PO SCH (10:14)
[2023-04-09] MEDS: Ketotifen 0.025% Ophth Soln 5 ML Bottle EYEBOTH SCH (10:15)
[2023-04-09] MEDS: Formoterol/Mometasone 200-5 MCG 13 GM Inhaler INH SCH ×2 (10:15→20:16)
[2023-04-09] MEDS: NYSTATIN 100000 UNIT/ML PO SCH ×3 (10:15→20:15)
[2023-04-09] MEDS: RIVAROXABAN 20 MG PO SCH (17:19)
[2023-04-09] MEDS: Donepezil 10 MG Tab (OWN SUPPLY) PO SCH (20:15)
[2023-04-09] MEDS: MONTELUKAST 10 MG PO SCH (20:15)
[2023-04-09] MEDS: Magnesium Oxide 400 MG Tab PO SCH (20:17)
[2023-04-10] MEDS: LANSOPRAZOLE 30 MG PO SCH (06:15)
[2023-04-10] MEDS: LEVOTHYROXINE 112 MCG PO SCH (06:16)
[2023-04-10] MEDS: NYSTATIN 100000 UNIT/ML PO SCH ×3 (09:31→20:18)
[2023-04-10] MEDS: Gabapentin 100 MG Cap (OWN SUPPLY) PO SCH ×2 (09:31→20:18)
[2023-04-10] MEDS: Ketotifen 0.025% Ophth Soln 5 ML Bottle EYEBOTH SCH (09:32)
[2023-04-10] MEDS: Furosemide 20 MG Tab (OWN SUPPLY) PO SCH (09:32)
[2023-04-10] MEDS: Formoterol/Mometasone 200-5 MCG 13 GM Inhaler INH SCH ×2 (09:32→20:17)
[2023-04-10] MEDS: Spironolactone 25 MG Tab (OWN SUPPLY) PO SCH (09:32)
[2023-04-10] MEDS: PILOCARPINE 5 MG PO SCH ×3 (09:32→20:21)
[2023-04-10] MEDS: RIVAROXABAN 20 MG PO SCH (17:03)
[2023-04-10] MEDS: Donepezil 10 MG Tab (OWN SUPPLY) PO SCH (20:16)
[2023-04-10] MEDS: Magnesium Oxide 400 MG Tab PO SCH (20:17)
[2023-04-10] MEDS: MONTELUKAST 10 MG PO SCH (20:19)
[2023-04-11] MEDS: LEVOTHYROXINE 112 MCG PO SCH (06:09)
[2023-04-11] MEDS: LANSOPRAZOLE 30 MG PO SCH (06:09)
[2023-04-11] MEDS: Spironolactone 25 MG Tab (OWN SUPPLY) PO SCH (08:28)
[2023-04-11] MEDS: Gabapentin 100 MG Cap (OWN SUPPLY) PO SCH (08:29)
[2023-04-11] MEDS: Ketotifen 0.025% Ophth Soln 5 ML Bottle EYEBOTH SCH (08:30)
[2023-04-11] MEDS: Formoterol/Mometasone 200-5 MCG 13 GM Inhaler INH SCH (08:30)
[2023-04-11] MEDS: PILOCARPINE 5 MG PO SCH (08:31)
[2023-04-11] MEDS: Furosemide 20 MG Tab (OWN SUPPLY) PO SCH (08:31)
[2023-04-11] MEDS: NYSTATIN 100000 UNIT/ML PO SCH (08:31)
[2023-04-11] MEDS ORDERED: FLU (Fluad Quad) 2023-24(65UP)/MF59C/PF 60 MCG/0.5 ML Syringe IM ONE (10:45)
== END 2023-04-11 11:00 | DRG 948 ==
LOC: VM.MS 13:50
PROVIDERS: ADMIT Family Medicine; ATTEND Family Medicine
DX: R53.81 Other malaise (principal); I50.32 Chronic diastolic (congestive) heart failure; E87.1 Hypo-osmolality and hyponatremia; I48.0 Paroxysmal atrial fibrillation; I11.0 Hypertensive heart disease with heart failure; I35.0 Nonrheumatic aortic (valve) stenosis; E03.9 Hypothyroidism, unspecified; Z66 Do not resuscitate; K21.9 Gastro-esophageal reflux disease without esophagitis; F41.9 Anxiety disorder, unspecified; F43.20 Adjustment disorder, unspecified; M06.9 Rheumatoid arthritis, unspecified; J45.909 Unspecified asthma, uncomplicated; H91.90 Unspecified hearing loss, unspecified ear; M19.90 Unspecified osteoarthritis, unspecified site; M81.0 Age-related osteoporosis without current pathological fracture; Z96.659 Presence of unspecified artificial knee joint; Z96.649 Presence of unspecified artificial hip joint; Z79.899 Other long term (current) drug therapy; Z87.891 Personal history of nicotine dependence
CPT/HCPCS: 36415; 51701; 51702; 51798; 80053; 81001; 81003; 85025; 87040; 90694; 94640; 94668; 94760; 97110-GP; 97116-GP; 97164-GP; 97530-GO; 97530-GP; 97535-GO; A9270-GY; G0008; J7620-GY